=== PATIENT | male | born 1970 | race Caucasian/White ===

== ENCOUNTER 2018-01-18 12:38 | Emergency (ER) | payer OTHER ==
[2018-01-18 13:38] LABS: Urine Blood 3+ (NEG); Urine Glucose NEGATIVE (NEG); Urine Protein 2+ (NEG); Urine Specific Gravity >1.030 (1.005-1.030); Urine pH 5.5 (5.0-7.0)
[2018-01-18 13:42] LABS: Potassium 3.9 mEq/L (3.6-5.0)
[2018-01-18 13:44] LABS: Glomerular Filtration Rate > 60 mL/min (>60)
[2018-01-18 13:48] LABS: Absolute Lymphocytes (CBC) 1.5 K/uL (0.7-4.9); Absolute Monocytes 0.6 K/uL (0.1-1.3); Absolute Neutrophil 6.5 K/uL (1.8-8.0); Albumin 4.6 g/dL (3.2-5.5); Basophils % 0.7 % (0-1.3); Bilirubin Direct 0.2 mg/dL (0-0.2); Bilirubin Total 1.1 mg/dL (0.3-1.2); Eosinophils % 0.4 % (0-4.4); Hematocrit 46.7 % (39.6-49.0); Lymphocytes % 17.8 % (15.3-44.8); MCH 30.4 pg (27.0-35.0); MCV 90.8 fL (80-100); MPV 10.2 fL (7.6-11.3); Monocytes % 6.7 % (3.3-12.3); Protein, Total 7.7 g/dL (6.0-8.3); RBC Red Blood Cell Count 5.14 M/uL (4.33-5.43)
[2018-01-18 13:52] LABS: Urine Bacteria NONE SEEN /HPF (NONE SEEN); Urine Culture Reflex Order REFLEXED; Urine RBC TNTC /HPF (NONE SEEN)
[2018-01-18 13:53] LABS: Urine Mucus LIGHT /HPF (NONE SEEN)
[2018-01-18] MEDS ORDERED: NA CHLORIDE 0.9% 1,000 ML ONE (13:56)
[2018-01-18] MEDS ORDERED: ONDANSETRON 4 MG/2 ML VIAL ONE (13:56)
[2018-01-18] MEDS ORDERED: MORPHINE 4 MG/ML SYR ONE (13:56)
--- NOTE | 2018-01-18 14:17 | RAD REPORT ---
EXAM DESCRIPTION: CT - Stone Protocol - 01/18/2018 2:03 pm CLINICAL HISTORY: Back pain, hematuria, possible kidney stone COMPARISON: None. TECHNIQUE: Axial 5 mm thick images were obtained without oral or IV contrast. The brlhm-by-kozh span s the entirety of the system including uppermost abdomen and lung bases. All CT scans are performed using dose optimization technique as appropriate and may include automated exposure control or mA/KV adjustment according to patient size. FINDINGS: No right-sided hydronephrosis and no right ureteral calculus. There is no left-sided hydro nephrosis present. However, there is a 5 millimeter distal left ureteral calculus approximately 3 cm from the bladder. Bilateral 2- 3 millimeter nonobstructing caliceal calcifications are present. No st randing or edema adjacent to the kidneys or ureters. No suspicious renal masses. Isodense masses and pyelonephritis are not excluded on a stone protocol CT scan. Urinary bladder is contracted. This limi ts assessment of wall thickening or mass. No bladder calculi present. Imaged portions of the liver, spleen and pancreas show no focal findings on non-contrast imaging. Dif fuse fatty infiltration pattern is seen within the liver. No gallbladder or biliary tree abnormality. Gallstones can be occult. No significant adrenal finding. No acute bowel finding. No appendicitis. No mass or bulky lymphadenopathy. Bilateral fat filled inguinal hernias are present. No free air, ankit e fluid or inflammatory stranding. No significant bony abnormality. IMPRESSION: A 5 millimeter distal left ureteral calculus is present 3 cm from the bladder. There is focal edema or thickening of the ureter at the level of the stone but no hydronephrosis is p resent. Bilateral nonobstructing 2-3 mm caliceal calcifications are present. Fatty infiltration of the liver. Isodense masses and pyelonephritis are not excluded on stone protocol technique.
[2018-01-18] MEDS ORDERED: MAGNESIUM SULFATE 1 gm IVPB 1 GM/100 ML BAG IV ONE (14:59)
[2018-01-18] MEDS ORDERED: TAMSULOSIN 0.4 MG SR CAP ONE (14:59)
[2018-01-18] MEDS ORDERED: CEFTRIAXONE/SWI 1gm 1 GM/10 ML SYR ONE (15:07)
--- NOTE | 2018-01-18 15:17 | ER ---
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 Also reports urinary urgency and frequency. Transition of care: patient was not received from another setting of care. Onset of symptoms was January 11, 2018. Care prior to arrival: None. 12:48 Method Of Arrival: Ambulatory 12:48 Acuity: CHARI 3 aj Triage Assessment: 12:50 General: Appears in no apparent distress. uncomfortable, Behavior is calm, cooperative, aj appropriate for age. Pain: Complains of pain in mid back area Pain currently is 4 out of 10 on a pain scale. Neuro: Level of Consciousness is awake, alert, obeys commands, Oriented to person, place, time, situation. Respiratory: Airway is patent Respiratory effort is even, unlabored, Respiratory pattern is regular, symmetrical. : Reports urgency, urinary frequency. Derm: Skin is intact, is healthy with good turgor, Skin is pink, warm \\T\\ dry. normal. Historical: - Allergies: 12:50 Lisinopril; aj 12:50 Naproxen; aj - Home Meds: 12:50 valsartan oral oral [Active]; aj - PMHx: 12:50 Hypertension; aj - PSHx: 12:50 None; aj - Immunization history:: Adult Immunizations up to date. - Social history:: Smoking status: Patient/guardian denies using tobacco. Screenin:01 Abuse screen: Denies threats or abuse. Denies injuries from another. Nutritional kr2 screening: No deficits noted. Tuberculosis screening: No symptoms or risk factors identified. Fall Risk None identified. Assessment: 13:00 General: Appears in no apparent distress. uncomfortable, well groomed, well developed, kr2 well nourished, Behavior is calm, cooperative, appropriate for age. Pain: Complains of pain in mid back area Pain currently is 4 out of 10 on a pain scale. Quality of pain is described as aching, Pain began gradually, Is continuous, Alleviated by nothing. Neuro: Level of Consciousness is awake, alert, obeys commands, Oriented to person, place, time, situation, Appropriate for age. Cardiovascular: Capillary refill < 3 seconds in bilateral fingers Patient's skin is warm and dry. Respiratory: Airway is patent Respiratory effort is even, unlabored, Respiratory pattern is regular, symmetrical. GI: Abdomen is round non-distended, Bowel sounds present X 4 quads. Abd is soft and non tender X 4 quads. : Reports urinary frequency, "feeling like I can't get my bladder completely empty, I feel like my bladder is full and can't get any relief. Only small amounts come out at a time". EENT: Oral mucosa is moist. Derm: Skin is intact, is healthy with good turgor, Skin is pink, warm \\T\\ dry. Musculoskeletal: Circulation, motion, and sensation intact. 14:00 Reassessment: Patient appears in no apparent distress at this time. Patient and/or kr2 family updated on plan of care and expected duration. Pain level reassessed. Patient is alert, oriented x 3, equal unlabored respirations, skin warm/dry/pink. 15:00 Reassessment: Patient appears in no apparent distress at this time. Patient and/or kr2 family updated on plan of care and expected duration. Pain level reassessed. Patient is alert, oriented x 3, equal unlabored respirations, skin warm/dry/pink. Pain decreased. Vital Signs: 12:50 BP 154 / 97; Pulse 107; Resp 20; Temp 98.1; Pulse Ox 97% on R/A; Weight 132 kg; Height aj 6 ft. 2 in. (187.96 cm); Pain 4/10; 14:30 BP 156 / 94; Pulse 90; Resp 15; Pulse Ox 95% on R/A; kr2 15:50 BP 152 / 90; Pulse 88; Resp 16; Pulse Ox 99% on R/A; kr2 12:50 Body Mass Index 37.36 (132.00 kg, 187.96 cm) aj ED Course: 12:41 Patient arrived in ED. as 12:49 Triage completed. aj 12:50 Arm band placed on right wrist. Patient placed in an exam room. aj 12:55 Keshav Domingo PA is PHCP. cp 12:55 Keshav Hahn MD is Attending Physician. cp 12:58 Kamryn Le RN is Primary Nurse. kr2 13:00 Patient has correct armband on for positive identification. Bed in low position. Call kr2 light in reach. Side rails up X 1. Pulse ox on. NIBP on. 13:25 Inserted saline lock: 20 gauge in left antecubital area, using aseptic technique. Blood ss collected. 14:02 CT completed. Patient tolerated procedure well. Patient moved to radiology via sj wheelchair. Patient moved back from CT. 14:03 CT Stone Protocol In Process Unspecified. EDMS 15:15 Emma Zhao MD is Referral Physician. cp 15:51 No provider procedures requiring assistance completed. IV discontinued, intact, kr2 bleeding controlled, No redness/swelling at site. Pressure dressing applied. Administered Medications: 13:43 Drug: NS 0.9% 1000 ml Route: IV; Rate: 1 bolus; Site: left antecubital; kr2 15:53 Follow up: Response: No adverse reaction; IV Status: Completed infusion kr2 14:15 Drug: Zofran 4 mg Route: IVP; Site: left antecubital; kr2 15:53 Follow up: Response: No adverse reaction kr2 14:15 Drug: morphine 4 mg Route: IVP; Site: left antecubital; kr2 15:53 Follow up: Response: No adverse reaction kr2 15:53 Follow up: Response: Pain is decreased kr2 14:53 Drug: Magnesium Sulfate 1 grams Route: IVPB; Infused Over: 1 hrs; Site: left kr2 antecubital; 15:52 Follow up: Response: No adverse reaction; IV Status: Completed infusion kr2 14:53 Drug: Flomax 0.4 mg Route: PO; kr2 15:52 Follow up: Response: No adverse reaction kr2 14:53 Drug: Rocephin - (cefTRIAXone) 1 grams Route: IVPB; Infused Over: 30 mins; Site: left kr2 antecubital; 15:52 Follow up: Response: No adverse reaction; IV Status: Completed infusion kr2 Outcome: 15:16 Discharge ordered by MD. cp 15:51 Discharged to home ambulatory. kr2 15:51 Condition: good 15:51 Discharge instructions given to patient, Instructed on discharge instructions, follow up and referral plans. medication usage, Demonstrated understanding of instructions, follow-up care, medications, Prescriptions given X 4. 15:53 Patient left the ED. kr2 Signatures: Dispatcher [employer] EDRita Lezama, RN RN Malgorzata Moran Amelia as Smirch, Shelby, RN RN ss Page, Corey, PA PA cp Reaves, Karey RN RN kr2
--- NOTE | 2018-01-18 15:17 | EDPHYS ---
Physician Documentation [facility] Name: Alvaro Lewis Age: 47 yrs Sex: Male : 1970 Arrival Date: 01/18/2018 Time: 12:41 Bed 23 Private MD: ED Physician Keshav Hahn HPI: 01/18 13:14 This 47 yrs old Male presents to ER via Ambulatory with complaints of Urinary cp Frequency. 13:15 The patient presents with urinary symptoms, urinary frequency, hematuria. Onset: The cp symptoms/episode began/occurred this morning. Associated signs and symptoms: Pertinent positives: abdominal pain, bilateral flank pain, Pertinent negatives: constipation, diarrhea, fever, vomiting. Historical: - Allergies: 12:50 Lisinopril; aj 12:50 Naproxen; aj - Home Meds: 12:50 valsartan oral oral [Active]; aj - PMHx: 12:50 Hypertension; aj - PSHx: 12:50 None; aj - Immunization history:: Adult Immunizations up to date. - Social history:: Smoking status: Patient/guardian denies using tobacco. ROS: 13:20 Constitutional: Negative for body aches, chills, fever, poor PO intake. cp 13:20 Eyes: Negative for injury, pain, redness, and discharge, ENT: Negative for injury, cp pain, and discharge, Neck: Negative for injury, pain, and swelling. 13:20 Cardiovascular: Negative for chest pain, edema, palpitations. 13:20 Respiratory: Negative for cough, shortness of breath, wheezing. 13:20 Abdomen/GI: Positive for abdominal pain, of the suprapubic area, Negative for vomiting, diarrhea, constipation, black/tarry stool, rectal bleeding. 13:20 Back: Positive for flank pain, bilaterally. 13:20 : Positive for urinary frequency, hematuria, Negative for testicular pain 13:20 Skin: Negative for cellulitis, rash. 13:20 Neuro: Negative for altered mental status, dizziness, headache, weakness. 13:20 All other systems are negative. Exam: 13:25 Constitutional: The patient appears in no acute distress, alert, awake, non-toxic, well cp developed, well nourished, obese, uncomfortable. 13:25 Head/Face: Normocephalic, atraumatic. Eyes: Pupils equal round and reactive to light, cp extra-ocular motions intact. Lids and lashes normal. Conjunctiva and sclera are non-icteric and not injected. Cornea within normal limits. Periorbital areas with no swelling, redness, or edema. ENT: Nares patent. No nasal discharge, no septal abnormalities noted. Tympanic membranes are normal and external auditory canals are clear. Oropharynx with no redness, swelling, or masses, exudates, or evidence of obstruction, uvula midline. Mucous membranes moist. Chest/axilla: Normal chest wall appearance and motion. Nontender with no deformity. No lesions are appreciated. 13:25 Cardiovascular: Rate: tachycardic, Rhythm: regular, Edema: is not appreciated. 13:25 Respiratory: the patient does not display signs of respiratory distress, Respirations: normal, no use of accessory muscles, no retractions, no splinting, no tachypnea, labored breathing, is not present, Breath sounds: are clear throughout, no decreased breath sounds, no stridor, no wheezing. 13:25 Abdomen/GI: Inspection: obese Bowel sounds: active, all quadrants, Palpation: soft, in all quadrants, mild abdominal tenderness, in the right lower quadrant and left lower quadrant, rebound tenderness, is not appreciated, voluntary guarding, is not appreciated, involuntary guarding, is not appreciated. 13:25 Back: CVA tenderness, that is mild, is noted bilaterally. 13:25 Skin: cellulitis, is not appreciated, no rash present. 13:25 Neuro: Orientation: to person, place \T\ time. Mentation: is normal, Cerebellar function: is grossly normal, Motor: moves all fours, strength is normal, Sensation: no obvious gross deficits. Vital Signs: 12:50 BP 154 / 97; Pulse 107; Resp 20; Temp 98.1; Pulse Ox 97% on R/A; Weight 132 kg; Height aj 6 ft. 2 in. (187.96 cm); Pain 4/10; 14:30 BP 156 / 94; Pulse 90; Resp 15; Pulse Ox 95% on R/A; kr2 15:50 BP 152 / 90; Pulse 88; Resp 16; Pulse Ox 99% on R/A; kr2 12:50 Body Mass Index 37.36 (132.00 kg, 187.96 cm) MDM: 12:55 Patient medically screened. cp 14:00 Differential diagnosis: UTI, urinary retention, prostatitis, urethritis, kidney stone, cp ureteral stone. 15:08 Data reviewed: vital signs, nurses notes, lab test result(s), radiologic studies, CT cp scan, and as a result, I will discharge patient. 15:08 Counseling: I had a detailed discussion with the patient and/or guardian regarding: the cp historical points, exam findings, and any diagnostic results supporting the discharge/admit diagnosis, lab results, radiology results, the need for outpatient follow up, a urologist, to return to the emergency department if symptoms worsen or persist or if there are any questions or concerns that arise at home. 15:10 Response to treatment: the patient's symptoms have markedly improved after treatment, cp VSS. Pain and nausea improved. Will discharge to home for continued monitoring. 01/18 13:10 Order name: Urine Dipstick--Ancillary (enter results); Complete Time: 14:25 bd 01/18 14:26 Interpretation: Normal except: USPGR >1.030; UBLD 3+; UPROT 2+. cp 01/18 13:14 Order name: Amylase, Serum cp 01/18 13:14 Order name: Basic Metabolic Panel cp 01/18 13:14 Order name: CBC with Diff cp 01/18 13:14 Order name: Creatinine for Radiology; Complete Time: 14:25 cp 01/18 13:14 Order name: Hepatic Function; Complete Time: 14:25 cp 01/18 14:26 Interpretation: Normal except: SGPT 65. cp 01/18 13:14 Order name: Lipase; Complete Time: 14:25 cp 01/18 14:41 Interpretation: Abnormal: LIP 20. cp 01/18 13:14 Order name: Urine Microscopic Only; Complete Time: 14:25 cp 01/18 14:26 Interpretation: Normal except: UWBC 5-10; URBC TNTC. cp 01/18 13:15 Order name: Amylase Level; Complete Time: 14:25 EDMS 01/18 13:15 Order name: Basic Metabolic Panel; Complete Time: 14:25 EDMS 01/18 13:15 Order name: CBC with Automated Diff; Complete Time: 14:25 EDMS 01/18 13:40 Order name: CT Stone Protocol; Complete Time: 14:25 cp 01/18 13:54 Order name: Urine Culture EDMS 01/18 13:14 Order name: IV Saline Lock; Complete Time: 13:25 cp 01/18 13:14 Order name: Labs collected and sent; Complete Time: 13:25 cp 01/18 13:14 Order name: Urine Dipstick-Ancillary (obtain specimen); Complete Time: 13:25 cp Administered Medications: 13:43 Drug: NS 0.9% 1000 ml Route: IV; Rate: 1 bolus; Site: left antecubital; kr2 15:53 Follow up: Response: No adverse reaction; IV Status: Completed infusion kr2 14:15 Drug: Zofran 4 mg Route: IVP; Site: left antecubital; kr2 15:53 Follow up: Response: No adverse reaction kr2 14:15 Drug: morphine 4 mg Route: IVP; Site: left antecubital; kr2 15:53 Follow up: Response: No adverse reaction kr2 15:53 Follow up: Response: Pain is decreased kr2 14:53 Drug: Magnesium Sulfate 1 grams Route: IVPB; Infused Over: 1 hrs; Site: left kr2 antecubital; 15:52 Follow up: Response: No adverse reaction; IV Status: Completed infusion kr2 14:53 Drug: Flomax 0.4 mg Route: PO; kr2 15:52 Follow up: Response: No adverse reaction kr2 14:53 Drug: Rocephin - (cefTRIAXone) 1 grams Route: IVPB; Infused Over: 30 mins; Site: left kr2 antecubital; 15:52 Follow up: Response: No adverse reaction; IV Status: Completed infusion kr2 Disposition: 01/19 07:31 Co-signature as Attending Physician, Keshav Hahn MD I agree with the assessment and jenny plan of care. Disposition: 01/18/18 15:16 Discharged to Home. Impression: Calculus of kidney with calculus of ureter - Left. - Condition is Stable. - Discharge Instructions: Kidney Stones, Ureteral Colic. - Prescriptions for Tylenol- Codeine #3 300-30 mg Oral Tablet - take 2 tablets by ORAL route every 6 hours As needed no driving while taking medication; 20 tablet. Zofran 4 mg Oral Tablet - take 1 tablet by ORAL route every 12 hours As needed; 20 tablet. Flomax 0.4 mg Oral Capsule, Sust. Release 24 hr - take 1 capsule by ORAL route once daily As needed 1/2 hour following the same meal each day; 7 capsule. Cipro 500 mg Oral Tablet - take 1 tablet by ORAL route every 12 hours for 7 days; 14 tablet. - Medication Reconciliation Form, Thank You Letter, Antibiotic Education, Prescription Opioid Use form. - Follow up: Emma Zhao MD; When: 1 - 2 days; Reason: Recheck today's complaints. - Problem is new. - Symptoms have improved. Signatures: Dispatcher [employer] Rita Alberts, RN RN Keshav Pack MD MD cha Page, Corey, PA Kamryn Meredith cp, RN RN kr2
== END 2018-01-18 15:53 | disposition home or self-care (01) ==
LOC: ER 12:38
DX: N20.2 Calculus of kidney with calculus of ureter (principal); I10 Essential (primary) hypertension; Z88.6 Allergy status to analgesic agent; Z88.8 Allergy status to other drugs, medicaments and biological substances
CPT/HCPCS: 36415; 74176; 76377; 80048; 80076; 81003; 81015; 82150; 83690; 85025; 87086; 87088; 96361; 96365; 96368; 96375; 99284; J0696; J2405; J3475; J7030